=== PATIENT | female | born 1930 | race Caucasian/White ===

== ENCOUNTER → 2018-07-24 | Outpatient (REF) | payer OTHER ==
[~2018-07-24] MED LIST: ASPI1TAB PO; CALC600T31 PO; CARV6.25 PO; HYDR12.55 PO; LEVO50TA5 PO; LISI10TA4 PO; OMEP20CA3 PO; PATIENT COMMENT; PRAV10TA3 PO; VITMTA PO
== END ==
LOC: M LAB REF 16:41
PROVIDERS: ATTEND Internal Medicine
DX: N76.0 Acute vaginitis (principal)

== ENCOUNTER → 2018-11-10 | Outpatient (REF) | payer OTHER ==
[~2018-11-10] MED LIST changes: -ASPI1TAB PO; +ASPI81TA26 PO
== END ==
LOC: M LAB REF 13:00
PROVIDERS: ATTEND Internal Medicine
DX: I51.7 Cardiomegaly (principal)

== ENCOUNTER 2019-08-21 14:05 | Emergency (ER) | payer MEDICARE, OTHER ==
[~2019-08-21] VITALS: Ht 152.4 cm; Wt 54.5 kg
[~2019-08-21 14:05] MED LIST changes: +OMEP1CAP73 PO; -OMEP20CA3 PO
[2019-08-21] MEDS ORDERED: NS 1,000 ML IV ONE (16:15)
[2019-08-21 17:08] LABS: BASO % 0.3 % (0.0-1.0); EOS # 0.2 10^3/uL (0.0-0.5); EOS % 1.9 % (0.0-3.0); HEMATOCRIT 36.1 % (36.0-47.0); HEMOGLOBIN 11.7 g/dl (12.0-15.5); LYMPH % 9.3 % (24.0-44.0); MEAN CORPUSCULAR HGB CONC 32.4 g/dl (32.0-36.5); MEAN CORPUSCULAR VOLUME 95.5 fl (80.0-96.0); MONO # 0.6 10^3/uL (0.0-0.8); MONO % 5.7 % (0.0-5.0); NEUTROPHILS % 82.3 % (36.0-66.0); PLATELET COUNT, AUTOMATED 331 10^3/uL (150-450); RED BLOOD COUNT 3.78 10^6/uL (4.00-5.40); WHITE BLOOD COUNT 10.9 10^3/uL (4.0-10.0)
--- NOTE | 2019-08-21 17:15 | REP ---
CHEST, TWO VIEWS: COMPARISON: 09/20/2017 There is no acute infiltrate or pulmonary edema. The heart is normal in size. 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 There is some calcification and tortuosity of the thoracic aorta. The mediastinal silhouette is unchanged. There is osteopenia. IMPRESSION: No acute pulmonary disease. Electronically Signed by Elmo Young MD 08/21/2019 08:02 P
[2019-08-21 17:25] LABS: INR 1.23; PROTHROMBIN TIME 15.2 SECONDS (11.8-14.0)
[2019-08-21 17:26] LABS: PARTIAL THROMBOPLASTIN TIME 30.9 SECONDS (25.0-38.4)
[2019-08-21 17:38] LABS: ALBUMIN 3.3 GM/DL (3.2-5.2); ALT/SGPT 19 U/L (12-78); BILIRUBIN,DIRECT 0.1 MG/DL (0.0-0.2); BILIRUBIN,TOTAL 0.4 MG/DL (0.2-1.0); BLOOD UREA NITROGEN 10 MG/DL (7-18); CALCIUM LEVEL 8.4 MG/DL (8.8-10.2); CARBON DIOXIDE LEVEL 23 MEQ/L (21-32); CHLORIDE LEVEL 101 MEQ/L (98-107); CPK CREATINE PHOSPHOKINASE 97 U/L (26-192); CREATININE FOR GFR 0.58 MG/DL (0.55-1.30); FREE T4 1.27 NG/DL (0.76-1.46); GLOMERULAR FILTRATION RATE > 60.0 (>32); GLUCOSE, FASTING 74 MG/DL (70-100); MB/CK RELATIVE INDEX 4.12 (< OR =4); POTASSIUM SERUM 4.2 MEQ/L (3.5-5.1); SODIUM LEVEL 132 MEQ/L (136-145); TOTAL PROTEIN 6.5 GM/DL (6.4-8.2); TROPONIN I 0.02 NG/ML (< 0.10)
[2019-08-21 18:45] VITALS: BP 129/76
--- NOTE | 2019-08-23 06:28 | ECGEPIP ---
[facility] - ED Test Date: 2019-08-21 Pat Name: RYDER NEAL Department: Room: - Gender: Female [employer] [id number] Requested By: FIFI Og Order Number: [id number] Reading MD: Cruz Galeas Measurements Intervals [place] Rate: 70 P: 115 AR: 171 QRS: 163 QRSD: 86 T: 116 QT: 412 QTc: 446 Interpretive Statements SINUS RHYTHM ARM LEADS REVERSED UNNACCEPTABLE TRACING FOR INTERPRETATION Electronically Signed on 08-23-2019 6:28:12 EST by Cruz Galeas
== END 2019-08-21 19:07 | disposition home or self-care (01) ==
LOC: M ED 14:05
DX: R19.7 Diarrhea, unspecified (principal); R42 Dizziness and giddiness; I10 Essential (primary) hypertension; K21.9 Gastro-esophageal reflux disease without esophagitis; E78.9 Disorder of lipoprotein metabolism, unspecified; Z79.899 Other long term (current) drug therapy; Z79.82 Long term (current) use of aspirin; Z79.890 Hormone replacement therapy